=== PATIENT | female | born 1985 | race African-American/Black ===

== ENCOUNTER 2017-06-08 21:42 | Emergency (ER) | payer SELFPAY ==
--- NOTE | 2017-06-08 23:37 | ER Document Report ---
ED GI/ - General Chief Complaint: Vaginal Discharge Stated Complaint: VAGINAL DISCHARGE Time Seen by Provider: 06/08/17 22:59 Mode of Arrival: Ambulatory Information source: Patient TRAVEL OUTSIDE OF THE [place] IN LAST 30 DAYS: No - HPI Patient complains to provider of: Vaginal discharge Notes: 06/08/17 23:35 Patient is here with complaints of vaginal discharge with some lower abdominal pain for the last several days. States the pain seems to come and go. She has had some vaginal discharge but denies any vaginal bleeding. Patient states that when she was urinating a few days ago something came out of her vagina that had seeds in it. She states that while she was here urinating that something came out of her vagina again that had seeds in it. She denies sticking anything in her vagina that would resemble this. She denies being in a situation that someone could stick some in her vagina that she would not be aware of. Patient denies any fevers. She denies any nausea, vomiting, diarrhea. She denies any chest pain or shortness of breath. She denies any other complaints at this time. - Related Data Allergies/Adverse Reactions: No Known Allergies Allergy (Unverified 06/08/17 21:45) Past Medical History - Social History Smoking Status: Unknown if Ever Smoked Family History: Reviewed & Not Pertinent Review of Systems - Review of Systems -: Yes All other systems reviewed and negative Physical Exam - Vital signs Vitals: Temp Pulse Resp BP Pulse Ox 98.9 F 84 16 145/81 H 100 06/08/17 21:57 06/08/17 21:57 06/08/17 21:57 06/08/17 21:57 06/08/17 21:57 - Notes Notes: GENERAL: alert, cooperative, nontoxic, no distress. HEAD: normocephalic, atraumatic EYES: conjunctiva pink without discharge, no external redness or swelling. EARS: no external swelling, no external redness NOSE: atraumatic, no external swelling MOUTH/THROAT: mucous membranes moist and pink, posterior pharynx without erythema, swelling, exudate. No trismus or drooling. NECK: soft, supple, full range of motion, no meningismus. CHEST: no distress, lungs clear and equal throughout. No wheezing, rales, rhonchi. CARDIAC: regular rate and rhythm, no murmur, normal capillary refill, normal pulses. No peripheral edema noted. ABDOMEN: Soft, minimal tenderness to the suprapubic area. No rebound tenderness or guarding. No mass. No right lower quadrant tenderness or pain at McBurney's point. BACK: full range of motion, no CVA tenderness. EXTREMITIES: full range of motion of all extremities. No redness, no swelling. NEURO: alert and oriented x 3, no focal deficits, full range of motion of all extremities. PYSCH: appropriate mood, affect. Patient is cooperative. SKIN: pink, warm, dry, no rash. : Performed with female manager furniture at the bedside. No external lesions. No foreign bodies identified within the vagina. Cervix is closed. Moderate amount of white vaginal discharge noted. Mild left adnexal tenderness on bimanual exam with no mass. No cervical motion tenderness. No bleeding. Course - Re-evaluation Re-evalutation: 06/09/17 02:35 Patient is nontoxic. Stable vitals. She is here with complaints of some mild lower abdominal pain. Patient noted to have a positive urine test. Since she is having some mild lower abdominal tenderness, labs and ultrasound were ordered. Quantitative hCG is over 100,000. Ultrasound shows intrauterine at approximately 7 weeks with a heart rate of 121. Remainder of her labs are unremarkable. The patient states that she had 2 abnormal things fall out of her vagina over the last few weeks with the last occurring while she was here in the emergency department. She shows me what appears to be a small fruit such as a grape with deteriorating skin and seeds. I did not appreciate any foreign bodies on her vaginal exam at this time. It is possible that she could have had a partially digested fruit from her rectum that she thought came from her vagina as this certainly would not make sense if she has not placed any foreign bodies into her vagina. This point the patient will be discharged home with instructions to follow-up with her COMPUTATIONAL LINGUIST at the next available appointment. Follow-up sooner for worsening pain, high fever, for severe bleeding, persistent vomiting, or for any further concerns. The patient is noted to have elevated blood pressure during today's emergency department visit. The patient was informed of this finding. The patient was instructed that this may be related to pre-hypertension and requires further evaluation with a primary care provider. The patient has no hypertensive symptoms at this time. The patient's emergency department workup and current diagnosis were explained to the patient and or family. Follow-up instructions were provided. Medications if prescribed were discussed. Instructions for when to return to the emergency department including specific worrisome symptoms were discussed with the patient and/or family. - Vital Signs Vital signs: Temp Pulse Resp BP Pulse Ox 98.9 F 84 16 145/81 H 100 06/08/17 21:57 06/08/17 21:57 06/08/17 21:57 06/08/17 21:57 06/08/17 21:57 - Laboratory Result Diagrams: 06/09/17 00:48 06/09/17 00:48 Laboratory results interpreted by me: 06/08/17 06/09/17 06/09/17 23:02 00:48 00:48 Hgb 11.4 L Hct 35.5 L MCH 26.5 L RDW 15.6 H Sodium 136.4 L Beta HCG, Quant 403663.00 H Urine Blood SMALL H Urine Urobilinogen 4.0 H Urine HCG, Qual POSITIVE H - Diagnostic Test Radiology reviewed: Image reviewed, Reports reviewed - Ultrasound shows 7 week intrauterine Discharge - Discharge Clinical Impression: Pelvic pain Qualifiers: Weeks of gestation: less than 8 weeks Qualified Code(s): Z3A.01 - Less than 8 weeks gestation of Condition: Stable Disposition: HOME, SELF-CARE Instructions: Pelvic Pain in ([facility]) Additional Instructions: Follow-up with your COMPUTATIONAL LINGUIST at the next available appointment. Follow-up sooner for increasing pain, high fever, persistent vomiting, severe vaginal bleeding, or for any further concerns. Your blood pressure was elevated during today's visit. Have this rechecked with your doctor. Forms: Elevated Blood Pressure Referrals: ILENE GIRARD MD [ACTIVE STAFF] - Follow up as needed
[2017-06-08 23:39] LABS: APPEARANCE,URINE CLEAR; BILIRUBIN,URINE NEGATIVE (NEGATIVE); COLOR,URINE YELLOW; GLUCOSE, URINE NEGATIVE (NEGATIVE); KETONES,URINE NEGATIVE (NEGATIVE); LEUKOCYTE ESTERASE,URINE NEGATIVE (NEGATIVE); NITRITE,URINE NEGATIVE (NEGATIVE); PROTEIN,URINE NEGATIVE (NEGATIVE); URINE SPECIFIC GRAVITY 1.027
[2017-06-09 01:04] LABS: RBCS (WET MOUNT) NO RBCS SEEN; T.VAGINALIS (WET MOUNT) NO TRICHOMONAS SEEN; WBCS (WET MOUNT) 1+ WBCS SEEN; YEAST (WET MOUNT) NO YEAST SEEN
[2017-06-09 01:05] LABS: ABSOLUTE BASOPHILS # (AUTO) 0.1 10^3/uL (0.0-0.2); ABSOLUTE EOSINOPHILS # (AUTO) 0.1 10^3/uL (0.0-0.6); ABSOLUTE MONOCYTES (AUTO) 0.8 10^3/uL (0.1-1.4); BASOPHILS % (AUTO) 0.8 % (0-2); EOSINOPHILS % (AUTO) 1.5 % (0-6); HEMATOCRIT 35.5 % (36.0-47.0); HEMOGLOBIN 11.4 g/dL (12.0-15.5); LYMPHOCYTES % (AUTO) 32.8 % (13-45); MEAN CORPUSCULAR HEMOGLOBIN 26.5 pg (27.0-33.4); MEAN CORPUSCULAR HGB CONC 32.1 g/dL (32.0-36.0); MEAN CORPUSCULAR VOLUME 83 fl (80-97); MONOCYTES % (AUTO) 9.2 % (3-13); PLATELET COUNT 260 10^3/uL (150-450); RED BLOOD COUNT 4.31 10^6/uL (3.72-5.28); RED CELL DISTRIBUTION WIDTH 15.6 % (11.5-14.0); SEGMENTED NEUTROPHILS % (AUTO) 55.7 % (42-78); TOTAL CELLS COUNTED % (AUTO) 100 %
[2017-06-09 01:21] LABS: ALANINE AMINOTRANSFERASE 21 U/L (9-52); ALBUMIN 3.9 g/dL (3.5-5.0); ALKALINE PHOSPHATASE 57 U/L (38-126); ANION GAP 7 (5-19); ASPARTATE AMINO TRANSFERASE 15 U/L (14-36); BILIRUBIN,TOTAL 0.2 mg/dL (0.2-1.3); BLOOD UREA NITROGEN 16 mg/dL (7-20); CALCIUM 9.7 mg/dL (8.4-10.2); CARBON DIOXIDE 26 mmol/L (22-30); CHLORIDE 103 mmol/L (98-107); GLUCOSE 93 mg/dL (75-110); POTASSIUM 4.2 mmol/L (3.6-5.0); SODIUM 136.4 mmol/L (137-145); TOTAL PROTEIN 6.7 g/dL (6.3-8.2)
[2017-06-09 02:31] LABS: CHLAM PCR NOT DETECTED (NOT DETECT); GON PCR NOT DETECTED (NOT DETECT)
--- NOTE | 2017-06-09 02:33 | RADIOLOGY REPORT (SQ) ---
EXAM DESCRIPTION: U/S OB TRANSVAG W/DOPPLER CLINICAL HISTORY: 32 years Female, preg, pelvic pain. LMP 05/17/2017. COMPARISON: None. TECHNIQUE: Complete first trimester obstetrical ultrasound with transvaginal imaging. Somewhat suboptimal evaluation due to patient body habitus and bowel gas. FINDINGS: Uterus measures 12.1 x 6.9 x 8.4 cm. Within the medullary canal there is a gestational sac. The fetus is identified with a crown-rump length of 1.0 cm compatible with an estimated gestational age of 7 weeks, 1 day. heart rate of 121 bpm. Yolk sac is not visualized. No myometrial abnormalities. Cervical length of 4.0 cm and closed. No free pelvic fluid. The left ovary is identified. The right ovary measures 3.3 x 3.9 x 2.9 cm. Limited color and spectral Doppler imaging demonstrates flow within the right ovary. IMPRESSION: 1. Single live intrauterine with estimated gestational age of 7 weeks, 1 day. heart rate of 121 bpm.
[2017-06-09 02:46] VITALS: BP 115/67
== END 2017-06-09 02:45 | disposition home or self-care (01) ==
LOC: ER 21:42
DX: O26.891 Other specified pregnancy related conditions, first trimester (principal); R10.2 Pelvic and perineal pain; N89.8 Other specified noninflammatory disorders of vagina; R10.30 Lower abdominal pain, unspecified; Z3A.01 Less than 8 weeks gestation of pregnancy
CPT/HCPCS: 36415; 76817; 80053; 81001; 81025; 84702; 85025; 86900; 86901; 87210; 87491; 87591; 93976; 99284

== ENCOUNTER 2017-07-25 12:26 | Emergency (ER) | payer SELFPAY ==
[2017-07-25] MEDS ORDERED: ACETAMINOPHEN 325 MG TABLET PO ONE (13:32)
--- NOTE | 2017-07-25 13:34 | ER Document Report ---
ED Medical Screen (RME) - General Chief Complaint: Abdominal Pain Stated Complaint: STOMACHE PAINS, HEADACHES Time Seen by Provider: 07/25/17 13:19 Notes: RAPID MEDICAL EVALUATION DISCLOSURE I have seen this patient as part of a Rapid Medical Evaluation and, if applicable, placed any initially appropriate orders. The patient will be seen and fully evaluated, including a full history and physical exam, by a provider ( in Main ED or Fast Track) when a room becomes available. 32-year-old female status post elective June 22, 2017 here with complaints of upper and lower abdominal pain as well as vaginal bleeding ongoing since the . She is going through 4 pads daily. She just started having the pain and fever 2 days ago. She denies any vaginal discharge dysuria. EXAM Mild epigastric TTP Moderate suprapubic TTP TRAVEL OUTSIDE OF THE [place] IN LAST 30 DAYS: No - Related Data Allergies/Adverse Reactions: cephalexin [From Keflex] Allergy (Verified 07/25/17 13:31) swelling Past Medical History - Social History Chew tobacco use (# tins/day): No Frequency of alcohol use: None Drug Abuse: None Renal/ Medical History: Denies: Hx Peritoneal Dialysis Past Surgical History: Reports: Hx Section - x 3 Physical Exam - Vital signs Vitals: Temp Pulse Resp BP Pulse Ox 99.7 F 102 H 18 132/76 H 100 07/25/17 12:43 07/25/17 12:43 07/25/17 12:43 07/25/17 12:43 07/25/17 12:43 Course - Vital Signs Vital signs: Temp Pulse Resp BP Pulse Ox 99.7 F 102 H 18 132/76 H 100 07/25/17 12:43 07/25/17 12:43 07/25/17 12:43 07/25/17 12:43 07/25/17 12:43
[2017-07-25 14:27] LABS: ABSOLUTE EOSINOPHILS # (AUTO) 0.1 10^3/uL (0.0-0.6); ABSOLUTE LYMPHOCYTES (AUTO) 1.3 10^3/uL (0.5-4.7); ABSOLUTE NEUT (AUTO) 8.1 10^3/uL (1.7-8.2); BASOPHILS % (AUTO) 0.2 % (0-2); EOSINOPHILS % (AUTO) 0.8 % (0-6); HEMATOCRIT 36.9 % (36.0-47.0); HEMOGLOBIN 11.9 g/dL (12.0-15.5); LYMPHOCYTES % (AUTO) 12.3 % (13-45); MEAN CORPUSCULAR HGB CONC 32.2 g/dL (32.0-36.0); MEAN CORPUSCULAR VOLUME 84 fl (80-97); MONOCYTES % (AUTO) 9.5 % (3-13); PLATELET COUNT 278 10^3/uL (150-450); RED BLOOD COUNT 4.41 10^6/uL (3.72-5.28); RED CELL DISTRIBUTION WIDTH 14.6 % (11.5-14.0); SEGMENTED NEUTROPHILS % (AUTO) 77.2 % (42-78); TOTAL CELLS COUNTED % (AUTO) 100 %; WHITE BLOOD COUNT 10.5 10^3/uL (4.0-10.5)
[2017-07-25 14:38] LABS: APPEARANCE,URINE SLIGHTLY-CLOUDY; BILIRUBIN,URINE NEGATIVE (NEGATIVE); COLOR,URINE YELLOW; GLUCOSE, URINE NEGATIVE (NEGATIVE); KETONES,URINE TRACE mg/dL (NEGATIVE); LEUKOCYTE ESTERASE,URINE NEGATIVE (NEGATIVE); NITRITE,URINE NEGATIVE (NEGATIVE); PROTEIN,URINE 30 mg/dL (NEGATIVE); URINE SPECIFIC GRAVITY 1.026
[2017-07-25 14:43] LABS: ALANINE AMINOTRANSFERASE 17 U/L (9-52); ALBUMIN 3.9 g/dL (3.5-5.0); ALKALINE PHOSPHATASE 72 U/L (38-126); ANION GAP 11 (5-19); ASPARTATE AMINO TRANSFERASE 12 U/L (14-36); BILIRUBIN,DIRECT 0.2 mg/dL (0.0-0.4); BILIRUBIN,TOTAL 0.6 mg/dL (0.2-1.3); BLOOD UREA NITROGEN 11 mg/dL (7-20); CALCIUM 9.1 mg/dL (8.4-10.2); CARBON DIOXIDE 29 mmol/L (22-30); CHLORIDE 102 mmol/L (98-107); GLUCOSE 80 mg/dL (75-110); LIPASE 29.2 U/L (23-300); POTASSIUM 3.9 mmol/L (3.6-5.0); SODIUM 142.1 mmol/L (137-145); TOTAL PROTEIN 7.4 g/dL (6.3-8.2)
--- NOTE | 2017-07-25 15:48 | RADIOLOGY REPORT (SQ) ---
EXAM DESCRIPTION: U/S OB TRANSVAGINAL W/O DOP COMPLETED DATE/TIME: 07/25/2017 3:31 pm REASON FOR STUDY: Eab June; eval rPOC, bleeding pain COMPARISON: Pelvic ultrasound 06/09/2017 TECHNIQUE: Endovaginal static and realtime grayscale images acquired of the pelvis. Additional selec tierra spectral and color Doppler images recorded. All images stored on PACs. BHC.8 LIMITATIONS: Left adnexal bowel gas FINDINGS: UTERUS: No visualized intrauterine . Uterus is 9 x 7 x 6.5 cm in size. Endometr ial stripe 14 mm in thickness. No intrauterine gestational sac. No gross evidence of retained produ cts of conception or fluid in the endometrial canal. RIGHT ADNEXA: Normal ovary with normal vascular flow. Right ovary 3.6 x 2.2 x 2 cm in size with a 1 cm cyst right ovary. No adnexal free fluid. No adnexal masses. LEFT ADNEXA: Not visualized due to adnexal bowel gas. FREE FLUID: Physiologic cul-de-sac fluid is present OTHER: No other significant finding. IMPRESSION: NO VISUALIZED INTRA- OR EXTRAUTERINE . bHCG LEVEL TOO LOW TO EXPECT VISUALIZATION OF . ECTOPIC CANNOT BE EXCLUDED. FOLLOW-UP ULTRASOUND AND SERIAL BHCG LEVELS STRONGLY RECOMMENDED TO ACCURATELY ASSESS STATU S. TECHNICAL DOCUMENTATION: JOB ID: [id number] [employer]- All Rights Reserved Reading location - IP/workstation name: [email or web address]
--- NOTE | 2017-07-25 16:17 | ER Document Report ---
ED General - General Chief Complaint: Abdominal Pain Stated Complaint: STOMACHE PAINS, HEADACHES Time Seen by Provider: 07/25/17 13:19 Mode of Arrival: Ambulatory Information source: Patient Notes: 32-year-old female presents to emergency department for evaluation of abdominal pain, chills, headaches, and tactile fever. Patient reports that she had an a month ago. She reports bleeding has been going on for approximately a month and that the fever started 2 days ago. Denies any dysuria. Denies any vaginal discharge. She also denies any chest pain, shortness of breath, or wheezing. TRAVEL OUTSIDE OF THE [place] IN LAST 30 DAYS: No - Related Data Allergies/Adverse Reactions: cephalexin [From Keflex] Allergy (Verified 07/25/17 13:31) swelling Past Medical History - General Information source: Patient - Social History Smoking Status: Never Smoker Chew tobacco use (# tins/day): No Frequency of alcohol use: None Drug Abuse: None Family History: Reviewed & Not Pertinent Patient has suicidal ideation: No Patient has homicidal ideation: No Renal/ Medical History: Denies: Hx Peritoneal Dialysis Past Surgical History: Reports: Hx Section - x 3 Review of Systems - Review of Systems -: Yes All other systems reviewed and negative Physical Exam - Vital signs Vitals: Temp Pulse Resp BP Pulse Ox 99.7 F 102 H 18 132/76 H 100 07/25/17 12:43 07/25/17 12:43 07/25/17 12:43 07/25/17 12:43 07/25/17 12:43 - Notes Notes: PHYSICAL EXAMINATION: GENERAL: Well-appearing, well-nourished and in no acute distress. HEAD: Atraumatic, normocephalic. NECK: Normal range of motion, supple without lymphadenopathy ABDOMEN: Soft, paralyzed tenderness with no guarding, rigidity, rebound tenderness, or peritoneal signs. Nondistended abdomen. No masses appreciated. Female : No external lesions noted. Moderate blood in vaginal canal with no discharge. Cervix closed. Mild apical motion tenderness. No adnexal tenderness Musculoskeletal: Normal range of motion, no pitting or edema. No cyanosis. NEUROLOGICAL: Normal gait, balance, speech, and facial symmetry PSYCH: Normal mood, normal affect. SKIN: Warm, Dry, normal turgor, no rashes or lesions noted. Course - Re-evaluation Re-evalutation: 07/25/17 18:10 Patient presented to the emergency department for evaluation of vaginal bleeding and abdominal pain. She was nontoxic or septic appearing in no acute or respiratory distress. Patient was afebrile and not hypoxic. Consistent with vaginal bleeding, bacterial vaginosis, and yeast infection. No evidence of endometritis. Patient had a moderate amount of bleeding and vaginal canal with no evidence of discharge. Patient's hCG was 68.2. Ultrasound could not rule out ectopic . She was treated with 2 g of azithromycin and into myosin due to patient being allergic to Keflex. Discharged home with Flagyl and Diflucan. I advised patient to follow-up on Saturday at the emergency department to have her hCG retested. I also advised her to return immediately to the emergency department for any new, worsening, or concerning symptoms as discussed. She understands and agrees with plan. Case was discussed with Dr. Conway attending and he agrees with assessment and plan. - Vital Signs Vital signs: Temp Pulse Resp BP Pulse Ox 99.7 F 102 H 18 132/76 H 100 07/25/17 12:43 07/25/17 12:43 07/25/17 12:43 07/25/17 12:43 07/25/17 12:43 - Laboratory Result Diagrams: 07/25/17 13:40 07/25/17 13:40 Laboratory results interpreted by me: 07/25/17 07/25/17 07/25/17 13:40 13:40 13:40 Hgb 11.9 L RDW 14.6 H Lymphocytes % 12.3 L AST 12 L Beta HCG, Quant 68.82 H Urine Protein 30 H Urine Ketones TRACE H Urine Blood LARGE H Urine Urobilinogen 4.0 H Discharge - Discharge Clinical Impression: Bacterial vaginosis, Yeast infection, Vaginal bleeding Condition: Good Disposition: HOME, SELF-CARE Instructions: Vaginal Bleeding ([facility]), Vaginosis, Bacterial ([facility]) Additional Instructions: Please return to the emergency department on Saturday to have your hCG retested. Today your hCG was 68.82. Please take medications as instructed and return immediately to the emergency department for any new, worsening, or concerning symptoms as we discussed. Prescriptions: Fluconazole [Diflucan 100 Mg Tablet] 100 mg PO DAILY #1 tablet Metronidazole [Flagyl 500 mg Tablet] 500 mg PO BID #14 tablet
[2017-07-25] MEDS ORDERED: AZITHROMYCIN 1 GM SUSP PACKET PO ONE (17:01)
[2017-07-25 17:09] LABS: BACTERIA (WET MOUNT) 4+ BACTERIA SEEN; EPITHELIALS (WET MOUNT) 3+ EPITHELIALS SEEN; RBCS (WET MOUNT) 4+ RBCS SEEN; T.VAGINALIS (WET MOUNT) NO TRICHOMONAS SEEN; WBCS (WET MOUNT) 3+ WBCS SEEN; YEAST (WET MOUNT) YEAST SEEN
[2017-07-25] MEDS ORDERED: GENTAMICIN SULFATE INJ 80 MG/2 ML VIAL IM ONE (17:15)
[2017-07-25] MEDS ORDERED: AZITHROMYCIN 250 MG TABLET PO ONE (18:04)
[2017-07-25 18:28] LABS: CHLAM PCR NOT DETECTED (NOT DETECT); GON PCR NOT DETECTED (NOT DETECT)
[2017-07-25 18:37] VITALS: BP 125/66
== END 2017-07-25 18:36 | disposition home or self-care (01) ==
LOC: ER 12:26
DX: N76.0 Acute vaginitis (principal); B96.89 Other specified bacterial agents as the cause of diseases classified elsewhere; B37.9 Candidiasis, unspecified; N93.9 Abnormal uterine and vaginal bleeding, unspecified; R10.9 Unspecified abdominal pain; R51 Headache; R50.9 Fever, unspecified; Z98.890 Other specified postprocedural states
CPT/HCPCS: 99284; 96372; 86900; 86901; 36415; 87210; 84702; 83690; 85025; 80076; 80048; 81001; 87491; 87591; 76817; J1580; Q0144

== ENCOUNTER 2017-07-27 15:33 | Emergency (ER) | payer SELFPAY ==
[2017-07-27 15:38] VITALS: BP 129/77
--- NOTE | 2017-07-27 16:00 | ER Document Report ---
ED General - General Chief Complaint: Medical Complaint Stated Complaint: BLOODWORK Time Seen by Provider: 07/27/17 15:53 Mode of Arrival: Ambulatory Information source: Patient TRAVEL OUTSIDE OF THE [place] IN LAST 30 DAYS: No - HPI Patient complains to provider of: bloodwork recheck Notes: Patient is here with complaints of needing to have her hormone level rechecked. She was seen here on June 08 and was diagnosed with and was noted to be approximately 7 weeks at that time. One month ago she had an . She was here 2 days ago for some abdominal pain was noted to have bacterial vaginosis. She was treated for gonorrhea and Chlamydia was also treated for bacterial vaginosis. She had a hormone level of 68 yesterday and was told to return in 2 days to have this rechecked. She had an ultrasound 2 days ago showing no intrauterine or other significant abnormality. She denies any abdominal pain today, no fever. She denies any nausea, vomiting, diarrhea. No dysuria or hematuria. No rash. No chest pain or shortness of breath. She has no other complaints at this time. - Related Data Allergies/Adverse Reactions: cephalexin [From Keflex] Allergy (Verified 07/27/17 15:33) swelling Past Medical History - Social History Smoking Status: Unknown if Ever Smoked Family History: Reviewed & Not Pertinent Renal/ Medical History: Denies: Hx Peritoneal Dialysis Past Surgical History: Reports: Hx Section - x 3 Review of Systems - Review of Systems -: Yes All other systems reviewed and negative Physical Exam - Vital signs Vitals: Temp Pulse Resp BP Pulse Ox 98.5 F 86 18 129/77 H 98 07/27/17 15:36 07/27/17 15:36 07/27/17 15:36 07/27/17 15:36 07/27/17 15:36 - Notes Notes: GENERAL: alert, cooperative, nontoxic, no distress. HEAD: normocephalic, atraumatic EYES: conjunctiva pink without discharge, no external redness or swelling. EARS: no external swelling, no external redness NOSE: atraumatic, no external swelling MOUTH/THROAT: mucous membranes moist and pink, posterior pharynx without erythema, swelling, exudate. No trismus or drooling. NECK: soft, supple, full range of motion, no meningismus. CHEST: no distress, lungs clear and equal throughout. No wheezing, rales, rhonchi. CARDIAC: regular rate and rhythm, no murmur, normal capillary refill, normal pulses. No peripheral edema noted. ABDOMEN: Soft, nontender. BACK: full range of motion, no CVA tenderness. EXTREMITIES: full range of motion of all extremities. No redness, no swelling. NEURO: alert and oriented x 3, no focal deficits, full range of motion of all extremities. PYSCH: appropriate mood, affect. Patient is cooperative. SKIN: pink, warm, dry, no rash. Course - Re-evaluation Re-evalutation: 07/27/17 16:42 Patient is nontoxic appearing with stable vitals. The patient is here with complaints of needing to have her quantitative hCG rechecked. She was here initially in June and was diagnosed with a 7 week . She had an one month ago. She was seen here 2 days ago for abdominal pain and had a quantitative hCG of 68. She was also diagnosed with pectoral vaginosis. She was treated for gonorrhea and chlamydia as well as pectoral vaginosis 2 days ago. She is no longer having any abdominal pain, was told to come back to the emergency department to recheck her hCG level today it is 46, and is trending down which would be consistent with her previous . She will be instructed to follow-up with the health department LUG LOADER in the next few weeks to ensure that it is down to 0, but the fact that it is trending down is reassuring. She has no abdominal tenderness on her exam at this time. Patient can be discharged home. She should follow-up if she develops any worsening pain , high fever, persistent vomiting, or has any further concerns. The patient's emergency department workup and current diagnosis were explained to the patient and or family. Follow-up instructions were provided. Medications if prescribed were discussed. Instructions for when to return to the emergency department including specific worrisome symptoms were discussed with the patient and/or family. The patient is noted to have elevated blood pressure during today's emergency department visit. The patient was informed of this finding. The patient was instructed that this may be related to pre-hypertension and requires further evaluation with a primary care provider. The patient has no hypertensive symptoms at this time. - Vital Signs Vital signs: Temp Pulse Resp BP Pulse Ox 98.5 F 86 18 129/77 H 98 05/26/18 15:36 07/27/17 15:36 07/27/17 15:36 07/27/17 15:36 07/27/17 15:36 - Laboratory Laboratory results interpreted by me: 07/27/17 15:30 Beta HCG, Quant 46.88 H Discharge - Discharge Clinical Impression: Condition: Stable Disposition: HOME, SELF-CARE Instructions: Miscarriage ([facility]) Additional Instructions: Follow-up with your LUG LOADER or primary care doctor in the next several weeks to ensure that your hormone level is back down to 0. It is down to 46 from 68. Follow-up sooner for worsening pain, fever, persistent vomiting, severe abdominal pain, or for any further concerns. Your blood pressure was elevated during today's visit. Have this rechecked with your doctor. Forms: Elevated Blood Pressure, Smoking Cessation Education Referrals: GRISELDA PALOMARES MD [[facility]] - Follow up as needed
== END 2017-07-27 16:51 | disposition home or self-care (01) ==
LOC: ER 15:33
DX: O03.9 Complete or unspecified spontaneous abortion without complication (principal); R03.0 Elevated blood-pressure reading, without diagnosis of hypertension
CPT/HCPCS: 36415; 84702; 99282